=== PATIENT | female | born 2000 | race Caucasian/White ===

== ENCOUNTER → 2024-09-16 | Outpatient (BNVA) | payer BC, SELFPAY | END | disposition home or self-care (01) | PROVIDERS: PCP Family Medicine; Referring Provider Family Medicine; Visit Provider Urology | DX: N28.1 Cyst of kidney, acquired (principal); N39.0 Urinary tract infection, site not specified | CPT/HCPCS: 81003; 99202; G0463 ==

== ENCOUNTER → 2025-02-07 | Outpatient (CLI) | payer BC, SELFPAY ==
--- NOTE | 2025-02-07 | XR_ITS ---
Examination: PA lateral chest 2 views TECHNIQUE: Upright PA lateral chest 2 views Date and time: February 07, 2025 1243 hours INDICATIONS: Coughing shortness of breath one month. FINDINGS: Normal heart size Lungs are clear. Osseous structures are intact IMPRESSION: No active disease
== END | disposition home or self-care (01) ==
PROVIDERS: PCP Family Medicine; Referring Provider Internal Medicine; Visit Provider Internal Medicine
DX: R05.9 Cough, unspecified (principal)
CPT/HCPCS: 71046

== ENCOUNTER → 2025-05-10 | Outpatient (CLI) | payer BC, SELFPAY ==
--- NOTE | 2025-05-10 15:45 | XR_ITS ---
Examination: Breast ultrasound, unilateral, left complete Date and time of exam: May 10, 2025 1620 hrs. Indications: Palpable left axillary lumps several years Technique: Real-time bobby scale ultrasonographic imaging performed left breast including all 4 quadrants as well as nipple retroareolar and axillary region. Findings: No cystic or solid breast mass 8 x 4 x 8 mm left axillary lymph node, probably benign Impression: BI-RADS Category 3: Probably benign findings Recommend 1 additional 6 month left breast axillary sonography follow-up to document stability of 8 x 4 x 8 mm relatively featureless left axillary mass/lymph node
== END | disposition home or self-care (01) ==
LOC: CDIM 15:53
PROVIDERS: Referring Provider Nurse Practitioner Family; Visit Provider Nurse Practitioner Family
DX: N63.32 Unspecified lump in axillary tail of the left breast (principal)
CPT/HCPCS: 76641